=== PATIENT | female | born 1965 | race Caucasian/White ===

== ENCOUNTER 2016-07-07 10:30 | Emergency (ER) | payer MEDICARE ==
[2013-04-27 10:36] VITALS: BMI 24.2
[~2016-07-07 10:30] MED LIST: AMBIEN10 MG PO; HYOSCYAMINE0.125 M1 SL; NORCO 5/325 TAB1 TA1 PO; PHENERGAN25 M1 PO; VENTOLIN/PR2 MG/5 ML PO
== END 2016-07-07 12:12 | disposition home or self-care (01) ==
LOC: D.ER 10:30
DX: G43.909 Migraine, unspecified, not intractable, without status migrainosus (principal); F41.9 Anxiety disorder, unspecified; H91.3 Deaf nonspeaking, not elsewhere classified; F17.200 Nicotine dependence, unspecified, uncomplicated

== ENCOUNTER 2016-07-16 17:13 | Emergency (ER) | payer MEDICARE ==
[2013-04-27 10:36] VITALS: BMI 24.2
== END 2016-07-16 18:36 | disposition home or self-care (01) ==
LOC: D.ER 17:13
DX: G43.909 Migraine, unspecified, not intractable, without status migrainosus (principal); F41.9 Anxiety disorder, unspecified; H91.3 Deaf nonspeaking, not elsewhere classified; J45.909 Unspecified asthma, uncomplicated

== ENCOUNTER 2016-07-18 21:24 | Emergency (ER) | payer MEDICARE ==
[2013-04-27 10:36] VITALS: BMI 24.2
== END 2016-07-19 00:05 | disposition home or self-care (01) ==
LOC: D.ER 21:24
DX: G43.909 Migraine, unspecified, not intractable, without status migrainosus (principal); F41.9 Anxiety disorder, unspecified; H91.3 Deaf nonspeaking, not elsewhere classified

== ENCOUNTER 2016-07-24 17:01 | Emergency (ER) | payer MEDICARE ==
[2013-04-27 10:36] VITALS: BMI 24.2
== END 2016-07-24 20:13 | disposition left against medical advice (07) ==
LOC: D.ER 17:01
DX: R51 Headache (principal)

== ENCOUNTER 2016-07-24 20:49 | Emergency (ER) | payer MEDICARE ==
[2013-04-27 10:36] VITALS: BMI 24.2
== END 2016-07-24 21:59 | disposition home or self-care (01) ==
LOC: D.ER 20:49
DX: G43.909 Migraine, unspecified, not intractable, without status migrainosus (principal); R11.2 Nausea with vomiting, unspecified; F17.200 Nicotine dependence, unspecified, uncomplicated; H91.3 Deaf nonspeaking, not elsewhere classified

== ENCOUNTER 2016-07-31 05:37 | Emergency (ER) | payer MEDICARE ==
[2013-04-27 10:36] VITALS: BMI 24.2
== END 2016-07-31 06:17 | disposition home or self-care (01) ==
LOC: D.ER 05:37
DX: R51 Headache (principal); F41.9 Anxiety disorder, unspecified; I25.10 Atherosclerotic heart disease of native coronary artery without angina pectoris; I10 Essential (primary) hypertension; F17.200 Nicotine dependence, unspecified, uncomplicated

== ENCOUNTER 2016-07-31 22:07 | Emergency (ER) | payer MEDICARE ==
[2013-04-27 10:36] VITALS: BMI 24.2
== END 2016-07-31 23:22 | disposition home or self-care (01) ==
LOC: D.ER 22:07
DX: G44.209 Tension-type headache, unspecified, not intractable (principal); F41.9 Anxiety disorder, unspecified; I25.10 Atherosclerotic heart disease of native coronary artery without angina pectoris; H91.3 Deaf nonspeaking, not elsewhere classified; I10 Essential (primary) hypertension; F17.200 Nicotine dependence, unspecified, uncomplicated

== ENCOUNTER 2016-08-05 05:22 | Emergency (ER) | payer MEDICARE ==
[2013-04-27 10:36] VITALS: BMI 24.2
== END 2016-08-05 06:48 | disposition home or self-care (01) ==
LOC: D.ER 05:22
DX: G43.909 Migraine, unspecified, not intractable, without status migrainosus (principal); F41.9 Anxiety disorder, unspecified; I25.10 Atherosclerotic heart disease of native coronary artery without angina pectoris; H91.3 Deaf nonspeaking, not elsewhere classified; I10 Essential (primary) hypertension

== ENCOUNTER 2016-08-06 19:11 | Emergency (ER) | payer MEDICARE ==
[2013-04-27 10:36] VITALS: BMI 24.2
== END 2016-08-06 23:37 | disposition home or self-care (01) ==
LOC: D.ER 19:11
DX: G43.909 Migraine, unspecified, not intractable, without status migrainosus (principal); F41.9 Anxiety disorder, unspecified; I25.10 Atherosclerotic heart disease of native coronary artery without angina pectoris; H91.3 Deaf nonspeaking, not elsewhere classified; I10 Essential (primary) hypertension

== ENCOUNTER 2016-08-14 18:34 | Emergency (ER) | payer MEDICARE ==
[2013-04-27 10:36] VITALS: BMI 24.2
== END 2016-08-14 20:48 | disposition home or self-care (01) ==
LOC: D.ER 18:34
DX: G43.909 Migraine, unspecified, not intractable, without status migrainosus (principal)

== ENCOUNTER 2016-08-20 02:58 | Emergency (ER) | payer MEDICARE ==
[2013-04-27 10:36] VITALS: BMI 24.2
== END 2016-08-20 03:58 | disposition home or self-care (01) ==
LOC: D.ER 02:58
DX: G43.909 Migraine, unspecified, not intractable, without status migrainosus (principal)

== ENCOUNTER 2016-08-27 14:19 | Emergency (ER) | payer MEDICARE ==
[2013-04-27 10:36] VITALS: BMI 24.2
== END 2016-08-27 23:26 | disposition home or self-care (01) ==
LOC: D.ER 14:19
DX: G43.919 Migraine, unspecified, intractable, without status migrainosus (principal); J01.90 Acute sinusitis, unspecified; I25.10 Atherosclerotic heart disease of native coronary artery without angina pectoris; H91.3 Deaf nonspeaking, not elsewhere classified; F41.9 Anxiety disorder, unspecified; F17.200 Nicotine dependence, unspecified, uncomplicated

== ENCOUNTER 2016-09-02 18:17 | Emergency (ER) | payer MEDICARE ==
[2013-04-27 10:36] VITALS: BMI 24.2
== END 2016-09-03 00:25 | disposition home or self-care (01) ==
LOC: D.ER 18:17
DX: R51 Headache (principal); F41.9 Anxiety disorder, unspecified; H91.3 Deaf nonspeaking, not elsewhere classified; I10 Essential (primary) hypertension

== ENCOUNTER 2016-09-07 15:23 | Emergency (ER) | payer MEDICARE ==
[2013-04-27 10:36] VITALS: BMI 24.2
== END 2016-09-07 17:30 | disposition home or self-care (01) ==
LOC: D.ER 15:23
DX: G43.909 Migraine, unspecified, not intractable, without status migrainosus (principal); R11.10 Vomiting, unspecified; F41.9 Anxiety disorder, unspecified; I25.10 Atherosclerotic heart disease of native coronary artery without angina pectoris; H91.3 Deaf nonspeaking, not elsewhere classified; I10 Essential (primary) hypertension; F17.200 Nicotine dependence, unspecified, uncomplicated

== ENCOUNTER 2016-09-15 13:37 | Emergency (ER) | payer MEDICARE ==
[2013-04-27 10:36] VITALS: BMI 24.2
== END 2016-09-15 16:25 | disposition home or self-care (01) ==
LOC: D.ER 13:37
DX: G43.909 Migraine, unspecified, not intractable, without status migrainosus (principal); S41.131A Puncture wound without foreign body of right upper arm, initial encounter; X58.XXXA Exposure to other specified factors, initial encounter; Y93.89 Activity, other specified; Y92.89 Other specified places as the place of occurrence of the external cause; F41.9 Anxiety disorder, unspecified; I25.10 Atherosclerotic heart disease of native coronary artery without angina pectoris; H91.3 Deaf nonspeaking, not elsewhere classified; I10 Essential (primary) hypertension; F17.200 Nicotine dependence, unspecified, uncomplicated

== ENCOUNTER 2016-09-22 00:51 | Emergency (ER) | payer MEDICARE ==
[2013-04-27 10:36] VITALS: BMI 24.2
== END 2016-09-22 02:15 | disposition home or self-care (01) ==
LOC: D.ER 00:51
DX: G43.909 Migraine, unspecified, not intractable, without status migrainosus (principal); F41.9 Anxiety disorder, unspecified; I25.10 Atherosclerotic heart disease of native coronary artery without angina pectoris; H91.3 Deaf nonspeaking, not elsewhere classified; I10 Essential (primary) hypertension

== ENCOUNTER 2016-09-25 21:18 | Emergency (ER) | payer MEDICARE ==
[2013-04-27 10:36] VITALS: BMI 24.2
[2016-09-25 23:21] LABS: BASOPHILS 1.1 % (0-2); HEMATOCRIT 38.1 % (36.0-48.0); HEMOGLOBIN 12.9 g/dL (12-16); IMMATURE GRANULOCYTES 0.2 % (0-5); LYMPHOCYTES 54.7 % (15-50); MCH 30.9 pg (26.0-34.0); MCHC 33.9 g/dL (31.0-37.0); MCV 91.1 fL (80.0-100.0); MEAN PLATELET VOLUME 9.3 fL (7.4-10.4); MONOCYTES 6.5 % (2-11); NEUTROPHILS 35.5 % (40-80); PLATELET COUNT 224 10x3/uL (130-400); RBC 4.18 10x6/uL (4.00-5.40); RDW 12.7 % (11.5-14.5); WBC 4.5 10x3/uL (4.8-10.8)
[2016-09-25 23:25] LABS: APPEARANCE HAZY (CLEAR); BILIRUBIN NEGATIVE (NEGATIVE); COLOR STRAW (YELLOW); GLUCOSE NEGATIVE (NEGATIVE); KETONE NEGATIVE (NEGATIVE); LEUKOCYTE ESTERASE NEGATIVE (NEGATIVE); NITRITE NEGATIVE (NEGATIVE); PH 6.5 (5.0-6.0); PROTEIN NEGATIVE (NEGATIVE); SPECIFIC GRAVITY 1.005 (1.005-1.020); UROBILINOGEN NORMAL (NORMAL)
[2016-09-25 23:34] LABS: ALBUMIN 3.7 g/dL (3.4-5.0); ALKALINE PHOSPHATASE 106 U/L (46-116); ALT (SGPT) 18 U/L (10-68); BILIRUBIN - TOTAL 0.11 mg/dL (0.2-1.3); CALC OSMOLALITY 281 mosm/kg (275-300); CALCIUM 8.7 mg/dL (8.5-10.1); CARBON DIOXIDE 25.2 mmol/L (21.0-32.0); CHLORIDE - SERUM 107 mmol/L (98-107); CREATININE - SERUM 0.7 mg/dL (0.6-1.3); GLUCOSE 95 mg/dL (74-106); POTASSIUM - SERUM 3.9 mmol/L (3.5-5.1); SODIUM 142 mmol/L (136-145); UREA NITROGEN 10 mg/dL (7-18); eGFR NON AFRICAN AMERICAN > 90 mL/min (90-120)
== END 2016-09-26 03:18 | disposition home or self-care (01) ==
LOC: D.ER 21:18
PROVIDERS: Emergency Medicine
DX: N23 Unspecified renal colic (principal); F41.9 Anxiety disorder, unspecified; I25.10 Atherosclerotic heart disease of native coronary artery without angina pectoris; H91.3 Deaf nonspeaking, not elsewhere classified; I10 Essential (primary) hypertension; F17.200 Nicotine dependence, unspecified, uncomplicated

== ENCOUNTER 2016-10-03 03:09 | Emergency (ER) | payer MEDICARE ==
[2013-04-27 10:36] VITALS: BMI 24.2
== END 2016-10-03 04:40 | disposition home or self-care (01) ==
LOC: D.ER 03:09
DX: R51 Headache (principal); I25.10 Atherosclerotic heart disease of native coronary artery without angina pectoris; H91.3 Deaf nonspeaking, not elsewhere classified; F17.200 Nicotine dependence, unspecified, uncomplicated

== ENCOUNTER 2016-10-05 11:21 | Emergency (ER) | payer MEDICARE ==
[2013-04-27 10:36] VITALS: BMI 24.2
== END 2016-10-05 14:45 | disposition home or self-care (01) ==
LOC: D.ER 11:21
DX: G43.909 Migraine, unspecified, not intractable, without status migrainosus (principal); I25.10 Atherosclerotic heart disease of native coronary artery without angina pectoris; H91.3 Deaf nonspeaking, not elsewhere classified; I10 Essential (primary) hypertension

== ENCOUNTER 2016-10-09 11:38 | Emergency (ER) | payer MEDICARE ==
[2013-04-27 10:36] VITALS: BMI 24.2
== END 2016-10-09 21:45 | disposition home or self-care (01) ==
LOC: D.ER 11:38
DX: R51 Headache (principal); F41.9 Anxiety disorder, unspecified; I25.10 Atherosclerotic heart disease of native coronary artery without angina pectoris; H91.3 Deaf nonspeaking, not elsewhere classified

== ENCOUNTER 2016-10-12 03:49 | Emergency (ER) | payer MEDICARE ==
[2013-04-27 10:36] VITALS: BMI 24.2
== END 2016-10-12 04:41 | disposition home or self-care (01) ==
LOC: D.ER 03:49
DX: G43.909 Migraine, unspecified, not intractable, without status migrainosus (principal); F17.200 Nicotine dependence, unspecified, uncomplicated; I25.10 Atherosclerotic heart disease of native coronary artery without angina pectoris; H91.3 Deaf nonspeaking, not elsewhere classified; I10 Essential (primary) hypertension

== ENCOUNTER 2016-10-26 12:36 | Emergency (ER) | payer MEDICARE ==
[2013-04-27 10:36] VITALS: BMI 24.2
== END 2016-10-26 14:13 | disposition home or self-care (01) ==
LOC: D.ER 12:36
DX: G43.909 Migraine, unspecified, not intractable, without status migrainosus (principal); F41.9 Anxiety disorder, unspecified; I25.10 Atherosclerotic heart disease of native coronary artery without angina pectoris; H91.3 Deaf nonspeaking, not elsewhere classified; I10 Essential (primary) hypertension

== ENCOUNTER 2016-11-02 17:49 | Emergency (ER) | payer MEDICARE ==
[2013-04-27 10:36] VITALS: BMI 24.2
== END 2016-11-02 20:18 | disposition home or self-care (01) ==
LOC: D.ER 17:49
DX: G43.909 Migraine, unspecified, not intractable, without status migrainosus (principal); I25.10 Atherosclerotic heart disease of native coronary artery without angina pectoris; H91.3 Deaf nonspeaking, not elsewhere classified; I10 Essential (primary) hypertension

== ENCOUNTER 2016-11-12 16:02 | Emergency (ER) | payer MEDICARE ==
[2013-04-27 10:36] VITALS: BMI 24.2
== END 2016-11-12 19:50 | disposition home or self-care (01) ==
LOC: D.ER 16:02
DX: R51 Headache (principal); R11.0 Nausea; I10 Essential (primary) hypertension

== ENCOUNTER 2016-11-13 09:57 | Emergency (ER) | payer MEDICARE ==
[2013-04-27 10:36] VITALS: BMI 24.2
== END 2016-11-13 11:10 | disposition home or self-care (01) ==
LOC: D.ER 09:57
DX: G43.909 Migraine, unspecified, not intractable, without status migrainosus (principal); I25.10 Atherosclerotic heart disease of native coronary artery without angina pectoris; I10 Essential (primary) hypertension; F41.9 Anxiety disorder, unspecified

== ENCOUNTER 2016-11-21 20:31 | Emergency (ER) | payer MEDICARE ==
[2013-04-27 10:36] VITALS: BMI 24.2
== END 2016-11-21 22:29 | disposition home or self-care (01) ==
LOC: D.ER 20:31
DX: G43.909 Migraine, unspecified, not intractable, without status migrainosus (principal)

== ENCOUNTER 2016-12-06 15:37 | Emergency (ER) | payer MEDICARE ==
[2013-04-27 10:36] VITALS: BMI 24.2
== END 2016-12-06 17:06 | disposition home or self-care (01) ==
LOC: D.ER 15:37
DX: G43.909 Migraine, unspecified, not intractable, without status migrainosus (principal); L01.00 Impetigo, unspecified; F17.200 Nicotine dependence, unspecified, uncomplicated

== ENCOUNTER 2016-12-06 23:17 | Emergency (ER) | payer MEDICARE ==
[2013-04-27 10:36] VITALS: BMI 24.2
== END 2016-12-07 00:05 | disposition home or self-care (01) ==
LOC: D.ER 23:17
DX: R51 Headache (principal); L02.212 Cutaneous abscess of back [any part, except buttock and flank]

== ENCOUNTER 2016-12-14 19:36 | Emergency (ER) | payer MEDICARE ==
[2013-04-27 10:36] VITALS: BMI 24.2
== END 2016-12-14 21:18 | disposition home or self-care (01) ==
LOC: D.ER 19:36
DX: G43.909 Migraine, unspecified, not intractable, without status migrainosus (principal); F17.200 Nicotine dependence, unspecified, uncomplicated

== ENCOUNTER 2016-12-16 19:29 | Emergency (ER) | payer MEDICARE ==
[2013-04-27 10:36] VITALS: BMI 24.2
== END 2016-12-16 22:13 | disposition home or self-care (01) ==
LOC: D.ER 19:29
DX: G43.909 Migraine, unspecified, not intractable, without status migrainosus (principal)

== ENCOUNTER 2016-12-19 15:40 | Emergency (ER) | payer MEDICARE ==
[2013-04-27 10:36] VITALS: BMI 24.2
[2016-12-19 18:58] LABS: BASOPHILS 0.5 % (0-2); EOSINOPHILS 0.7 % (0-7); HEMATOCRIT 34.9 % (36.0-48.0); IMMATURE GRANULOCYTES 0.2 % (0-5); LYMPHOCYTES 42.3 % (15-50); MCH 31.2 pg (26.0-34.0); MCHC 34.4 g/dL (31.0-37.0); MCV 90.6 fL (80.0-100.0); MEAN PLATELET VOLUME 9.2 fL (7.4-10.4); MONOCYTES 6.8 % (2-11); NEUTROPHILS 49.5 % (40-80); PLATELET COUNT 223 10x3/uL (130-400); RBC 3.85 10x6/uL (4.00-5.40); RDW 12.8 % (11.5-14.5); WBC 4.3 10x3/uL (4.8-10.8)
[2016-12-19 19:20] LABS: ALBUMIN 3.4 g/dL (3.4-5.0); ALKALINE PHOSPHATASE 96 U/L (46-116); ALT (SGPT) 14 U/L (10-68); BILIRUBIN - TOTAL 0.23 mg/dL (0.2-1.3); CALC OSMOLALITY 285 mosm/kg (275-300); CALCIUM 8.1 mg/dL (8.5-10.1); CARBON DIOXIDE 23.4 mmol/L (21.0-32.0); CHLORIDE - SERUM 110 mmol/L (98-107); CREATININE - SERUM 0.5 mg/dL (0.6-1.3); GLUCOSE 91 mg/dL (74-106); POTASSIUM - SERUM 3.9 mmol/L (3.5-5.1); PROTEIN - SERUM 6.1 g/dL (6.4-8.2); SODIUM 144 mmol/L (136-145); UREA NITROGEN 10 mg/dL (7-18); eGFR NON AFRICAN AMERICAN > 90 mL/min (90-120)
[2016-12-19 19:24] LABS: CHOL - HDL RATIO 6.3 ratio (2.3-4.1); CHOLESTEROL, TOTAL 233 mg/dL (0-200); CREATINE KINASE 47 UL (21-215); HDL CHOLESTEROL 37 mg/dL (32-96); LDL CHOLESTEROL 169 mg/dL (0-100); LDL-HDL RATIO 4.6 ratio (1.5-3.5); TRIGLYCERIDE 139 mg/dL (30-200)
[2016-12-19 19:26] LABS: TROPONIN-I < 0.017 ng/mL (0.000-0.060)
== END 2016-12-19 20:50 | disposition home or self-care (01) ==
LOC: D.ER 15:40
PROVIDERS: Emergency Medicine
DX: R07.9 Chest pain, unspecified (principal); F17.200 Nicotine dependence, unspecified, uncomplicated; Z95.5 Presence of coronary angioplasty implant and graft

== ENCOUNTER 2016-12-21 22:34 | Emergency (ER) | payer MEDICARE ==
[2013-04-27 10:36] VITALS: BMI 24.2
== END 2016-12-22 00:15 | disposition home or self-care (01) ==
LOC: D.ER 22:34
DX: G43.909 Migraine, unspecified, not intractable, without status migrainosus (principal)

== ENCOUNTER 2016-12-23 19:08 | Emergency (ER) | payer MEDICARE ==
[2013-04-27 10:36] VITALS: BMI 24.2
[2016-12-23 19:37] LABS: BASOPHILS 0.5 % (0-2); EOSINOPHILS 0.3 % (0-7); HEMATOCRIT 35.6 % (36.0-48.0); HEMOGLOBIN 12.3 g/dL (12-16); IMMATURE GRANULOCYTES 1.1 % (0-5); LYMPHOCYTES 28.4 % (15-50); MCH 31.3 pg (26.0-34.0); MCHC 34.6 g/dL (31.0-37.0); MCV 90.6 fL (80.0-100.0); MEAN PLATELET VOLUME 9.6 fL (7.4-10.4); MONOCYTES 6.4 % (2-11); NEUTROPHILS 63.3 % (40-80); PLATELET COUNT 231 10x3/uL (130-400); RBC 3.93 10x6/uL (4.00-5.40); RDW 12.7 % (11.5-14.5); WBC 6.4 10x3/uL (4.8-10.8)
[2016-12-23 19:54] LABS: ALBUMIN 3.7 g/dL (3.4-5.0); ALKALINE PHOSPHATASE 105 U/L (46-116); ALT (SGPT) 15 U/L (10-68); CALC OSMOLALITY 277 mosm/kg (275-300); CALCIUM 8.9 mg/dL (8.5-10.1); CARBON DIOXIDE 19.5 mmol/L (21.0-32.0); CHLORIDE - SERUM 106 mmol/L (98-107); CREATININE - SERUM 0.5 mg/dL (0.6-1.3); GLUCOSE 98 mg/dL (74-106); PROTEIN - SERUM 6.6 g/dL (6.4-8.2); SODIUM 140 mmol/L (136-145); UREA NITROGEN 9 mg/dL (7-18); eGFR NON AFRICAN AMERICAN > 90 mL/min (90-120)
[2016-12-23 20:06] LABS: CHOL - HDL RATIO 5.3 ratio (2.3-4.1); CHOLESTEROL, TOTAL 221 mg/dL (0-200); CREATINE KINASE 177 UL (21-215); HDL CHOLESTEROL 42 mg/dL (32-96); LDL CHOLESTEROL 168 mg/dL (0-100); PRO BNP 22 pg/mL (0-125); TRIGLYCERIDE 59 mg/dL (30-200); TROPONIN-I < 0.017 ng/mL (0.000-0.060)
== END 2016-12-24 00:58 | disposition home or self-care (01) ==
LOC: D.ER 19:08
PROVIDERS: Emergency Medicine
DX: R07.9 Chest pain, unspecified (principal); F17.200 Nicotine dependence, unspecified, uncomplicated

== ENCOUNTER 2016-12-26 23:17 | Emergency (ER) | payer MEDICARE ==
[2013-04-27 10:36] VITALS: BMI 24.2
== END 2016-12-27 00:05 | disposition home or self-care (01) ==
LOC: D.ER 23:17
DX: G44.209 Tension-type headache, unspecified, not intractable (principal); F43.20 Adjustment disorder, unspecified; F17.200 Nicotine dependence, unspecified, uncomplicated; R11.2 Nausea with vomiting, unspecified

== ENCOUNTER 2016-12-31 13:06 | Emergency (ER) | payer MEDICARE ==
[2013-04-27 10:36] VITALS: BMI 24.2
== END 2016-12-31 14:25 | disposition home or self-care (01) ==
LOC: D.ER 13:06
DX: G43.909 Migraine, unspecified, not intractable, without status migrainosus (principal); F17.200 Nicotine dependence, unspecified, uncomplicated; R11.10 Vomiting, unspecified; H53.149 Visual discomfort, unspecified; R53.1 Weakness

== ENCOUNTER 2017-01-06 03:18 | Emergency (ER) | payer MEDICARE ==
[2013-04-27 10:36] VITALS: BMI 24.2
== END 2017-01-06 04:03 | disposition home or self-care (01) ==
LOC: D.ER 03:18
DX: G43.909 Migraine, unspecified, not intractable, without status migrainosus (principal); R11.0 Nausea

== ENCOUNTER 2017-01-12 09:24 | Emergency (ER) | payer MEDICARE ==
[2013-04-27 10:36] VITALS: BMI 24.2
== END 2017-01-12 10:43 | disposition home or self-care (01) ==
LOC: D.ER 09:24
DX: G43.909 Migraine, unspecified, not intractable, without status migrainosus (principal); F17.200 Nicotine dependence, unspecified, uncomplicated

== ENCOUNTER 2017-01-14 10:57 | Emergency (ER) | payer MEDICARE ==
[2013-04-27 10:36] VITALS: BMI 24.2
[2017-01-14 11:53] LABS: APPEARANCE CLEAR (CLEAR); BILIRUBIN NEGATIVE (NEGATIVE); COLOR STRAW (YELLOW); GLUCOSE NEGATIVE (NEGATIVE); KETONE NEGATIVE (NEGATIVE); LEUKOCYTE ESTERASE NEGATIVE (NEGATIVE); NITRITE NEGATIVE (NEGATIVE); PROTEIN NEGATIVE (NEGATIVE); SPECIFIC GRAVITY 1.005 (1.005-1.020); UROBILINOGEN NORMAL (NORMAL)
[2017-01-14 12:03] LABS: BASOPHILS 0.4 % (0-2); EOSINOPHILS 0.8 % (0-7); HEMATOCRIT 38.3 % (36.0-48.0); HEMOGLOBIN 13.2 g/dL (12-16); LYMPHOCYTES 33.9 % (15-50); MCH 31.3 pg (26.0-34.0); MCHC 34.5 g/dL (31.0-37.0); MCV 90.8 fL (80.0-100.0); MEAN PLATELET VOLUME 9.5 fL (7.4-10.4); MONOCYTES 4.2 % (2-11); NEUTROPHILS 60.7 % (40-80); PLATELET COUNT 234 10x3/uL (130-400); RBC 4.22 10x6/uL (4.00-5.40); RDW 12.8 % (11.5-14.5); WBC 5.3 10x3/uL (4.8-10.8)
[2017-01-14 12:14] LABS: ALBUMIN 3.8 g/dL (3.4-5.0); ALKALINE PHOSPHATASE 103 U/L (46-116); ALT (SGPT) 16 U/L (10-68); BILIRUBIN - TOTAL 0.22 mg/dL (0.2-1.3); CALC OSMOLALITY 275 mosm/kg (275-300); CALCIUM 8.9 mg/dL (8.5-10.1); CARBON DIOXIDE 23.6 mmol/L (21.0-32.0); CHLORIDE - SERUM 105 mmol/L (98-107); CREATININE - SERUM 0.7 mg/dL (0.6-1.3); GLUCOSE 92 mg/dL (74-106); PROTEIN - SERUM 7.4 g/dL (6.4-8.2); SODIUM 139 mmol/L (136-145); UREA NITROGEN 8 mg/dL (7-18); eGFR NON AFRICAN AMERICAN > 90 mL/min (90-120)
== END 2017-01-14 12:31 | disposition left against medical advice (07) ==
LOC: D.ER 10:57
PROVIDERS: Emergency Medicine
DX: G89.29 Other chronic pain (principal); Z76.5 Malingerer [conscious simulation]

== ENCOUNTER 2017-01-14 21:11 | Emergency (ER) | payer MEDICARE ==
[2013-04-27 10:36] VITALS: BMI 24.2
== END 2017-01-15 02:10 | disposition home or self-care (01) ==
LOC: D.ER 21:11
DX: R51 Headache (principal); R11.2 Nausea with vomiting, unspecified

== ENCOUNTER 2017-01-24 16:07 | Emergency (ER) | payer MEDICARE ==
[2013-04-27 10:36] VITALS: BMI 24.2
== END 2017-01-24 17:55 | disposition home or self-care (01) ==
LOC: D.ER 16:07
DX: R51 Headache (principal); G43.909 Migraine, unspecified, not intractable, without status migrainosus; F17.200 Nicotine dependence, unspecified, uncomplicated; R11.0 Nausea; H53.149 Visual discomfort, unspecified

== ENCOUNTER 2017-01-29 13:50 | Emergency (ER) | payer MEDICARE ==
[2013-04-27 10:36] VITALS: BMI 24.2
== END 2017-01-29 16:56 | disposition home or self-care (01) ==
LOC: D.ER 13:50
DX: R51 Headache (principal)

== ENCOUNTER 2017-01-30 19:43 | Emergency (ER) | payer MEDICARE ==
[2013-04-27 10:36] VITALS: BMI 24.2
== END 2017-01-30 22:14 | disposition home or self-care (01) ==
LOC: D.ER 19:43
DX: G43.909 Migraine, unspecified, not intractable, without status migrainosus (principal); F17.200 Nicotine dependence, unspecified, uncomplicated

== ENCOUNTER 2017-02-10 22:04 | Emergency (ER) | payer MEDICARE ==
[2013-04-27 10:36] VITALS: BMI 24.2
== END 2017-02-11 00:19 | disposition home or self-care (01) ==
LOC: D.ER 22:04
DX: G43.909 Migraine, unspecified, not intractable, without status migrainosus (principal); R11.2 Nausea with vomiting, unspecified

== ENCOUNTER 2017-02-19 17:34 | Emergency (ER) | payer MEDICARE ==
[2013-04-27 10:36] VITALS: BMI 24.2
== END 2017-02-19 20:40 | disposition home or self-care (01) ==
LOC: D.ER 17:34
DX: G43.909 Migraine, unspecified, not intractable, without status migrainosus (principal)

== ENCOUNTER 2017-02-26 15:01 | Emergency (ER) | payer MEDICARE ==
[2013-04-27 10:36] VITALS: BMI 24.2
== END 2017-02-26 17:13 | disposition left against medical advice (07) ==
LOC: D.ER 15:01
DX: R51 Headache (principal)

== ENCOUNTER 2017-02-26 20:07 | Emergency (ER) | payer MEDICARE ==
[2013-04-27 10:36] VITALS: BMI 24.2
== END 2017-02-27 01:00 | disposition home or self-care (01) ==
LOC: D.ER 20:07
DX: G43.909 Migraine, unspecified, not intractable, without status migrainosus (principal)

== ENCOUNTER 2017-03-07 22:56 | Emergency (ER) | payer MEDICARE ==
[2013-04-27 10:36] VITALS: BMI 24.2
== END 2017-03-08 00:39 | disposition home or self-care (01) ==
LOC: D.ER 22:56
DX: G43.909 Migraine, unspecified, not intractable, without status migrainosus (principal); F17.200 Nicotine dependence, unspecified, uncomplicated

== ENCOUNTER 2017-03-12 04:35 | Emergency (ER) | payer MEDICARE ==
[2013-04-27 10:36] VITALS: BMI 24.2
== END 2017-03-12 05:27 | disposition home or self-care (01) ==
LOC: D.ER 04:35
DX: G43.909 Migraine, unspecified, not intractable, without status migrainosus (principal)

== ENCOUNTER 2017-03-12 15:38 | Emergency (ER) | payer MEDICARE ==
[2013-04-27 10:36] VITALS: BMI 24.2
== END 2017-03-12 17:11 | disposition home or self-care (01) ==
LOC: D.ER 15:38
DX: G43.909 Migraine, unspecified, not intractable, without status migrainosus (principal); F17.200 Nicotine dependence, unspecified, uncomplicated

== ENCOUNTER 2017-03-20 16:48 | Emergency (ER) | payer MEDICARE ==
[2013-04-27 10:36] VITALS: BMI 24.2
== END 2017-03-20 17:55 | disposition home or self-care (01) ==
LOC: D.ER 16:48
DX: G43.909 Migraine, unspecified, not intractable, without status migrainosus (principal); F17.200 Nicotine dependence, unspecified, uncomplicated

== ENCOUNTER 2017-03-30 14:14 | Emergency (ER) | payer MEDICARE ==
[2013-04-27 10:36] VITALS: BMI 24.2
== END 2017-03-30 19:08 | disposition home or self-care (01) ==
LOC: D.ER 14:14
DX: G43.909 Migraine, unspecified, not intractable, without status migrainosus (principal)

== ENCOUNTER 2017-04-06 12:15 | Emergency (ER) | payer MEDICARE ==
[2013-04-27 10:36] VITALS: BMI 24.2
== END 2017-04-06 14:16 | disposition home or self-care (01) ==
LOC: D.ER 12:15
DX: G43.909 Migraine, unspecified, not intractable, without status migrainosus (principal)

== ENCOUNTER 2017-04-13 18:36 | Emergency (ER) | payer MEDICARE ==
[2013-04-27 10:36] VITALS: BMI 24.2
== END 2017-04-13 19:38 | disposition home or self-care (01) ==
LOC: D.ER 18:36
DX: G43.909 Migraine, unspecified, not intractable, without status migrainosus (principal)

== ENCOUNTER 2017-04-17 19:00 | Emergency (ER) | payer MEDICARE ==
[2013-04-27 10:36] VITALS: BMI 24.2
== END 2017-04-17 21:15 | disposition home or self-care (01) ==
LOC: D.ER 19:00
PROVIDERS: Family Medicine
DX: G43.909 Migraine, unspecified, not intractable, without status migrainosus (principal); F17.200 Nicotine dependence, unspecified, uncomplicated

== ENCOUNTER 2017-04-29 18:08 | Emergency (ER) | payer MEDICARE ==
[2013-04-27 10:36] VITALS: BMI 24.2
== END 2017-04-29 21:30 | disposition home or self-care (01) ==
LOC: D.ER 18:08
DX: G43.909 Migraine, unspecified, not intractable, without status migrainosus (principal)

== ENCOUNTER 2017-05-05 22:28 | Emergency (ER) | payer MEDICARE ==
[2013-04-27 10:36] VITALS: BMI 24.2
== END 2017-05-06 00:39 | disposition home or self-care (01) ==
LOC: D.ER 22:28
DX: G43.909 Migraine, unspecified, not intractable, without status migrainosus (principal); F17.200 Nicotine dependence, unspecified, uncomplicated

== ENCOUNTER 2017-05-06 11:23 | Emergency (ER) | payer MEDICARE ==
[2013-04-27 10:36] VITALS: BMI 24.2
== END 2017-05-06 13:52 | disposition home or self-care (01) ==
LOC: D.ER 11:23
DX: G43.909 Migraine, unspecified, not intractable, without status migrainosus (principal)

== ENCOUNTER 2017-05-07 17:41 | Emergency (ER) | payer MEDICARE ==
[2013-04-27 10:36] VITALS: BMI 24.2
== END 2017-05-07 19:27 | disposition home or self-care (01) ==
LOC: D.ER 17:41
DX: G43.909 Migraine, unspecified, not intractable, without status migrainosus (principal); F17.200 Nicotine dependence, unspecified, uncomplicated

== ENCOUNTER 2017-05-10 20:02 | Emergency (ER) | payer MEDICARE ==
[2013-04-27 10:36] VITALS: BMI 24.2
== END 2017-05-10 21:21 | disposition home or self-care (01) ==
LOC: D.ER 20:02
DX: G43.909 Migraine, unspecified, not intractable, without status migrainosus (principal); F41.9 Anxiety disorder, unspecified; F17.200 Nicotine dependence, unspecified, uncomplicated

== ENCOUNTER 2017-05-12 17:04 | Emergency (ER) | payer MEDICARE ==
[2013-04-27 10:36] VITALS: BMI 24.2
[2017-05-12 17:42] LABS: BASOPHILS 0.5 % (0-2); HEMATOCRIT 39.4 % (36.0-48.0); HEMOGLOBIN 13.5 g/dL (12-16); IMMATURE GRANULOCYTES 0.2 % (0-5); LYMPHOCYTES 47.3 % (15-50); MCH 31.3 pg (26.0-34.0); MCHC 34.3 g/dL (31.0-37.0); MCV 91.4 fL (80.0-100.0); MEAN PLATELET VOLUME 9.1 fL (7.4-10.4); MONOCYTES 6.2 % (2-11); NEUTROPHILS 44.8 % (40-80); PLATELET COUNT 235 10x3/uL (130-400); RBC 4.31 10x6/uL (4.00-5.40); RDW 12.2 % (11.5-14.5); WBC 4.2 10x3/uL (4.8-10.8)
[2017-05-12 20:08] LABS: ALBUMIN 3.4 g/dL (3.4-5.0); ALKALINE PHOSPHATASE 95 U/L (46-116); ALT (SGPT) 14 U/L (10-68); BILIRUBIN - TOTAL 0.24 mg/dL (0.2-1.3); CALC OSMOLALITY 279 mosm/kg (275-300); CALCIUM 8.4 mg/dL (8.5-10.1); CARBON DIOXIDE 24.7 mmol/L (21.0-32.0); CHLORIDE - SERUM 108 mmol/L (98-107); CREATININE - SERUM 0.6 mg/dL (0.6-1.3); GLUCOSE 92 mg/dL (74-106); PROTEIN - SERUM 6.7 g/dL (6.4-8.2); SODIUM 141 mmol/L (136-145); UREA NITROGEN 10 mg/dL (7-18); eGFR NON AFRICAN AMERICAN > 90 mL/min (90-120)
[2017-05-12 20:11] LABS: CHOL - HDL RATIO 7.1 ratio (2.3-4.1); CHOLESTEROL, TOTAL 256 mg/dL (0-200); CKMB 0.1 U/L (0.0-3.6); CREATINE KINASE 53 UL (21-215); HDL CHOLESTEROL 36 mg/dL (32-96); LDL CHOLESTEROL 197 mg/dL (0-100); LDL-HDL RATIO 5.5 ratio (1.5-3.5); TRIGLYCERIDE 119 mg/dL (30-200)
[2017-05-12 20:20] LABS: TROPONIN-I < 0.017 ng/mL (0.000-0.060)
== END 2017-05-12 21:20 | disposition home or self-care (01) ==
LOC: D.ER 17:04
PROVIDERS: Family Medicine
DX: R07.89 Other chest pain (principal); F17.200 Nicotine dependence, unspecified, uncomplicated; I44.5 Left posterior fascicular block

== ENCOUNTER 2017-05-15 09:15 | Emergency (ER) | payer MEDICARE ==
[2013-04-27 10:36] VITALS: BMI 24.2
== END 2017-05-15 10:42 | disposition home or self-care (01) ==
LOC: D.ER 09:15
DX: G43.909 Migraine, unspecified, not intractable, without status migrainosus (principal); F43.20 Adjustment disorder, unspecified

== ENCOUNTER 2017-05-21 15:37 | Emergency (ER) | payer MEDICARE ==
[2013-04-27 10:36] VITALS: BMI 24.2
== END 2017-05-21 16:43 | disposition home or self-care (01) ==
LOC: D.ER 15:37
DX: G43.909 Migraine, unspecified, not intractable, without status migrainosus (principal); F17.200 Nicotine dependence, unspecified, uncomplicated

== ENCOUNTER 2017-05-31 03:01 | Emergency (ER) | payer MEDICARE ==
[2013-04-27 10:36] VITALS: BMI 24.2
== END 2017-05-31 03:37 | disposition home or self-care (01) ==
LOC: D.ER 03:01
DX: G43.909 Migraine, unspecified, not intractable, without status migrainosus (principal)

== ENCOUNTER 2017-06-10 19:01 | Emergency (ER) | payer MEDICARE ==
[2013-04-27 10:36] VITALS: BMI 24.2
[2017-06-10 19:47] LABS: BASOPHILS 0.4 % (0-2); EOSINOPHILS 1.2 % (0-7); HEMATOCRIT 38.7 % (36.0-48.0); HEMOGLOBIN 13.5 g/dL (12-16); IMMATURE GRANULOCYTES 0.2 % (0-5); LYMPHOCYTES 38.3 % (15-50); MCH 31.8 pg (26.0-34.0); MCHC 34.9 g/dL (31.0-37.0); MCV 91.3 fL (80.0-100.0); MEAN PLATELET VOLUME 9.2 fL (7.4-10.4); MONOCYTES 6.5 % (2-11); NEUTROPHILS 53.4 % (40-80); PLATELET COUNT 257 10x3/uL (130-400); RBC 4.24 10x6/uL (4.00-5.40); RDW 12.3 % (11.5-14.5); WBC 5.2 10x3/uL (4.8-10.8)
[2017-06-10 20:10] LABS: ALBUMIN 3.9 g/dL (3.4-5.0); ALKALINE PHOSPHATASE 100 U/L (46-116); ALT (SGPT) 18 U/L (10-68); BILIRUBIN - TOTAL 0.14 mg/dL (0.2-1.3); CALC OSMOLALITY 273 mosm/kg (275-300); CALCIUM 9.4 mg/dL (8.5-10.1); CARBON DIOXIDE 20.4 mmol/L (21.0-32.0); CHLORIDE - SERUM 106 mmol/L (98-107); CREATININE - SERUM 0.7 mg/dL (0.6-1.3); GLUCOSE 89 mg/dL (74-106); POTASSIUM - SERUM 3.6 mmol/L (3.5-5.1); SODIUM 138 mmol/L (136-145); UREA NITROGEN 9 mg/dL (7-18); eGFR NON AFRICAN AMERICAN > 90 mL/min (90-120)
[2017-06-10 20:25] LABS: CHOL - HDL RATIO 5.1 ratio (2.3-4.1); CHOLESTEROL, TOTAL 214 mg/dL (0-200); CKMB 0.7 U/L (0.0-3.6); CREATINE KINASE 68 UL (21-215); HDL CHOLESTEROL 42 mg/dL (32-96); LDL CHOLESTEROL 131 mg/dL (0-100); LDL-HDL RATIO 3.1 ratio (1.5-3.5); TRIGLYCERIDE 205 mg/dL (30-200)
[2017-06-10 20:28] LABS: TROPONIN-I 0.235 ng/mL (0.000-0.060)
== END 2017-06-10 22:14 | disposition home or self-care (01) ==
LOC: D.ER 19:01
PROVIDERS: Emergency Medicine
DX: G43.909 Migraine, unspecified, not intractable, without status migrainosus (principal); R07.89 Other chest pain

== ENCOUNTER 2017-06-24 21:59 | Emergency (ER) | payer MEDICARE ==
[2013-04-27 10:36] VITALS: BMI 24.2
== END 2017-06-25 00:18 | disposition home or self-care (01) ==
LOC: D.ER 21:59
DX: G43.909 Migraine, unspecified, not intractable, without status migrainosus (principal)

== ENCOUNTER 2017-07-02 18:19 | Emergency (ER) | payer MEDICARE ==
[2013-04-27 10:36] VITALS: BMI 24.2
== END 2017-07-02 21:02 | disposition home or self-care (01) ==
LOC: D.ER 18:19
DX: G43.909 Migraine, unspecified, not intractable, without status migrainosus (principal); F17.200 Nicotine dependence, unspecified, uncomplicated

== ENCOUNTER 2017-07-10 15:31 | Emergency (ER) | payer MEDICARE ==
[2013-04-27 10:36] VITALS: BMI 24.2
== END 2017-07-10 21:11 | disposition home or self-care (01) ==
LOC: D.ER 15:31
DX: G43.909 Migraine, unspecified, not intractable, without status migrainosus (principal)

== ENCOUNTER 2017-07-28 17:50 | Emergency (ER) | payer MEDICARE ==
[2013-04-27 10:36] VITALS: BMI 24.2
== END 2017-07-28 23:20 | disposition home or self-care (01) ==
LOC: D.ER 17:50
DX: G43.909 Migraine, unspecified, not intractable, without status migrainosus (principal)

== ENCOUNTER 2017-07-30 17:28 | Emergency (ER) | payer MEDICARE ==
[2013-04-27 10:36] VITALS: BMI 24.2
== END 2017-07-30 20:39 | disposition home or self-care (01) ==
LOC: D.ER 17:28
DX: G43.909 Migraine, unspecified, not intractable, without status migrainosus (principal); H53.9 Unspecified visual disturbance; F17.200 Nicotine dependence, unspecified, uncomplicated

== ENCOUNTER 2017-08-07 17:10 | Emergency (ER) | payer MEDICARE ==
[2013-04-27 10:36] VITALS: BMI 24.2
== END 2017-08-07 21:43 | disposition home or self-care (01) ==
LOC: D.ER 17:10
DX: G43.909 Migraine, unspecified, not intractable, without status migrainosus (principal); F17.200 Nicotine dependence, unspecified, uncomplicated

== ENCOUNTER 2017-08-14 17:05 | Emergency (ER) | payer MEDICARE ==
[2013-04-27 10:36] VITALS: BMI 24.2
== END 2017-08-14 20:10 | disposition home or self-care (01) ==
LOC: D.ER 17:05
DX: G43.909 Migraine, unspecified, not intractable, without status migrainosus (principal)

== ENCOUNTER 2017-08-15 10:00 | Emergency (ER) | payer MEDICARE ==
[2013-04-27 10:36] VITALS: BMI 24.2
== END 2017-08-15 11:16 | disposition home or self-care (01) ==
LOC: D.ER 10:00
DX: R11.2 Nausea with vomiting, unspecified (principal); R51 Headache

== ENCOUNTER 2017-08-15 21:03 | Emergency (ER) | payer MEDICARE ==
[2013-04-27 10:36] VITALS: BMI 24.2
== END 2017-08-16 02:45 | disposition home or self-care (01) ==
LOC: D.ER 21:03
DX: R51 Headache (principal)

== ENCOUNTER 2017-08-25 18:05 | Emergency (ER) | payer MEDICARE ==
[2013-04-27 10:36] VITALS: BMI 24.2
== END 2017-08-25 19:45 | disposition home or self-care (01) ==
LOC: D.ER 18:05
DX: G43.909 Migraine, unspecified, not intractable, without status migrainosus (principal)

== ENCOUNTER 2017-08-26 03:18 | Emergency (ER) | payer MEDICARE ==
[2013-04-27 10:36] VITALS: BMI 24.2
== END 2017-08-26 04:52 | disposition left against medical advice (07) ==
LOC: D.ER 03:18
DX: G43.909 Migraine, unspecified, not intractable, without status migrainosus (principal)

== ENCOUNTER 2017-08-28 18:26 | Emergency (ER) | payer MEDICARE ==
[2013-04-27 10:36] VITALS: BMI 24.2
== END 2017-08-28 22:36 | disposition home or self-care (01) ==
LOC: D.ER 18:26
DX: G43.909 Migraine, unspecified, not intractable, without status migrainosus (principal)

== ENCOUNTER 2018-01-15 13:50 | Emergency (ER) | payer MEDICARE ==
[~2018-01-15] VITALS: Ht 154.9 cm; Wt 55.0 kg
[2018-01-15 13:57] VITALS: BP 115/67; Ht 154.9 cm; Wt 55.0 kg
== END 2018-01-15 15:35 | disposition left against medical advice (07) ==
LOC: D.ER 13:50
DX: G43.709 Chronic migraine without aura, not intractable, without status migrainosus (principal); R11.2 Nausea with vomiting, unspecified; H91.3 Deaf nonspeaking, not elsewhere classified; F17.200 Nicotine dependence, unspecified, uncomplicated

== ENCOUNTER 2018-05-31 15:44 | Emergency (ER) | payer MEDICARE ==
[~2018-05-31] VITALS: Ht 154.9 cm; Wt 58.2 kg
[2018-05-31 15:52] VITALS: Ht 154.9 cm; Wt 58.2 kg
[2018-05-31 18:16] VITALS: BP 137/66
== END 2018-05-31 18:17 | disposition home or self-care (01) ==
LOC: D.ER 15:44
DX: R51 Headache (principal); F17.200 Nicotine dependence, unspecified, uncomplicated